=== PATIENT | male | born 1955 | race Caucasian/White ===

== ENCOUNTER → 2017-10-15 | Outpatient (CLI) | payer BC ==
[~2017-10-15] MED LIST: ACET325T14 PO; AMLO10TA6 PO; ASPI-496 PO; CARV-39 PO; Cyclobenzaprine Hcl PO; DAPT500V6 IV; DIAZ5TAB4 PO; DOXA4TAB3 PO; DOXY100T9 PO; ESCI20TA PO; GABA300C10 PO; HYDR-3307 PO; HYDR-882 PO; Hydrocodone Bit/Acetaminophen PO; Hydrocortisone TP; JOINT SUPPLEMENT PO; METH4TAB6 PO; METH500T97 PO; MULT-6 PO; ONDA4TAB7 PO; POLY17PO5 PO; POTA20TA6 PO; POTASSIUM CLORIDE PO; PRED10TA PO; REGADENOSON 0.4 MG/5 ML SYRINGE ONE; SENN1TAB8 PO; TRAM50TA2 PO; VALS1TAB28 PO
== END | disposition home or self-care (01) ==
LOC: CFH 07:53
PROVIDERS: ATTEND Physician Assistant
DX: I51.7 Cardiomegaly (principal)
CPT/HCPCS: 78452; 93017; 93306; A9502; J2785

== ENCOUNTER → 2018-03-24 | Outpatient (CLI) | payer BC ==
[~2018-03-24] MED LIST changes: -AMLO10TA6 PO; +AMLO10TA8 PO; +GLUC-149 PO; +HYDR-3653 PO; -HYDR-882 PO; +POTA20PA25 PO; -REGADENOSON 0.4 MG/5 ML SYRINGE ONE
[2018-03-24 11:57] LABS: MICROSCOPIC NOT IND
[2018-03-24 11:59] LABS: BASOPHILS # (AUTO) 0.01 x10^3/uL (0-0.1); BASOPHILS % (AUTO) 0 % (0-1); EOSINOPHILS # (AUTO) 0.27 x10^3/uL (0-0.4); EOSINOPHILS % (AUTO) 5 % (1-7); LYMPHOCYTES # (AUTO) 1.59 x10^3/uL (1-3.4); LYMPHOCYTES % (AUTO) 27 % (22-44); MD NO; MEAN CORPUSCULAR HEMOGLOBIN 30.5 pg (27.5-34.5); MEAN CORPUSCULAR HGB CONC 34.1 g/dL (33.2-36.2); MEAN CORPUSCULAR VOLUME 89.4 fL (81-97); MEAN PLATELET VOLUME 7.8 fL (7.4-10.4); MONOCYTES # (AUTO) 0.44 x10^3/uL (0.2-0.8); MONOCYTES % (AUTO) 7 % (2-9); NEUTROPHILS # (AUTO) 3.58 x10^3/uL (1.8-6.8); NEUTROPHILS % (AUTO) 61 % (42-75); PLATELET COUNT 181 x10^3/uL (130-400); RED BLOOD COUNT 5.09 x10^6/uL (4.38-5.82); RED CELL DISTRIBUTION WIDTH 12.6 % (9.4-14.8)
[2018-03-24 12:04] LABS: ALANINE AMINOTRANSFERASE 28 U/L (12-78); ALBUMIN 3.9 g/dL (3.4-5.0); ANION GAP 6 mmol/L (5-15); CALCIUM 8.9 mg/dL (8.5-10.1); CHLORIDE 107 mmol/L (98-107); CREATININE 0.93 mg/dL (0.7-1.3)
[2018-03-24 12:04] LABS: CULTURE INDICATED? NO
[2018-03-24 12:06] LABS: ALKALINE PHOSPHATASE 56 U/L (45-117); BILIRUBIN,TOTAL 0.7 mg/dL (0.2-1.0); TOTAL PROTEIN 7.2 g/dL (6.4-8.2)
== END | disposition home or self-care (01) ==
LOC: STAR 10:56
PROVIDERS: ATTEND Orthopaedic Surgery
DX: Z01.818 Encounter for other preprocedural examination (principal); M17.11 Unilateral primary osteoarthritis, right knee; M17.12 Unilateral primary osteoarthritis, left knee; S46.919A Strain of unspecified muscle, fascia and tendon at shoulder and upper arm level, unspecified arm, initial encounter; X58.XXXA Exposure to other specified factors, initial encounter; Y93.89 Activity, other specified; Y92.89 Other specified places as the place of occurrence of the external cause; Y99.8 Other external cause status
CPT/HCPCS: 36415; 80053; 81003; 85025; 87081; 87147; 93005

== ENCOUNTER 2018-04-04 07:53 | Inpatient (IN) | payer BC ==
[~2018-04-04] VITALS: Ht 177.8 cm; Wt 112.9 kg
[~2018-04-04 07:53] MED LIST changes: +EPINEPHRINE 1 MG/ML, 1ML ONE; +KETOROLAC 60 MG/2 ML ONE; +ROPIvacaine/PF 0.2%, 20 ML ONE; +SODIUM CHLORIDE 0.9% 50 ML ONE; +TRANEXAMIC ACID 100 MG/ML, 10ML ONE
[2018-04-04] MEDS ORDERED: VANCOMYCIN PER PHARMACY MC STA (08:38)
[2018-04-04] MEDS ORDERED: LACTATED RINGERS 1,000 ML IV SCH (08:41)
[2018-04-04] MEDS ORDERED: ONDANSETRON ODT 8 MG PO STA (08:42)
[2018-04-04] MEDS ORDERED: GABAPENTIN 300 MG CAPSULE PO STA (08:42)
[2018-04-04] MEDS ORDERED: OxyconTIN ER 10 MG TAB.ER PO STA (08:42)
[2018-04-04] MEDS ORDERED: ACETAMINOPHEN 500 MG TABLET PO STA (08:42)
[2018-04-04] MEDS ORDERED: MUPI22OI2 NAS (08:45)
[2018-04-04] MEDS ORDERED: VANCOMYCIN 2,000 MG in SODIUM CHLORIDE 0.9% 500 ML IV SCH (09:00)
[2018-04-04] MEDS ORDERED: FENTANYL PF 250 MCG/5ML ONE (09:37)
[2018-04-04] MEDS ORDERED: MIDAZOLAM 1 MG/ML, 2ML ONE (09:37)
[2018-04-04] MEDS ORDERED: VANCOMYCIN 1,000 MG ONE (11:17)
[2018-04-04] MEDS ORDERED: LIDOCAINE-MPF 2% ,5ML ONE (11:24)
[2018-04-04] MEDS ORDERED: BUPIVACAINE/PF 0.25% ONE (11:24)
[2018-04-04] MEDS ORDERED: PROPOFOL 10 MG/ML, 20ML ONE (11:25)
[2018-04-04] MEDS ORDERED: CEFAZOLIN 1,000 MG ONE (11:25)
[2018-04-04] MEDS ORDERED: PROMETHAZINE 25 MG/ML, 1ML IV PRN (11:30)
[2018-04-04] MEDS ORDERED: MIDAZOLAM 1 MG/ML, 2ML IV PRN (11:30)
[2018-04-04] MEDS ORDERED: OXYcodone 5 MG/5 ML ORAL.SOL UDC PO PRN (11:30)
[2018-04-04] MEDS ORDERED: ONDANSETRON 2MG/ML, 2ML IV PRN ×2 (11:30→12:30)
[2018-04-04] MEDS ORDERED: METOPROLOL 1 MG/ML, 5ML IV PRN (11:30)
[2018-04-04] MEDS ORDERED: HYDROmorphone 2 MG/ML, 1ML IVPush PRN (11:30)
[2018-04-04] MEDS ORDERED: hydrALAzine 20 MG/ML, 1ML IV PRN (11:30)
[2018-04-04] MEDS ORDERED: MEPERIDINE/PF 25MG/0.5ML IVPush PRN (11:30)
[2018-04-04] MEDS ORDERED: ALBUTEROL/IPRATROPIUM 2.5MG/0.5MG, 3 ML NPPB PRN (11:30)
[2018-04-04] MEDS: SODIUM CHLORIDE 0.9% 1,000 ML IV SCH ×2 (12:04→19:30)
[2018-04-04] MEDS ORDERED: HYDROmorphone 1 MG/ML, 1ML ONE (12:15)
[2018-04-04] MEDS ORDERED: FENTANYL PF 100 MCG/2ML ONE (12:15)
[2018-04-04] MEDS ORDERED: OXYcodone 5 MG/5 ML ORAL.SOL UDC ONE (12:16)
[2018-04-04] MEDS: FENTANYL PF 100 MCG/2ML IV PRN ×2 (12:20→12:50)
[2018-04-04] MEDS ORDERED: HYDROmorphone 1 MG/ML, 1ML IV PRN (12:30)
[2018-04-04] MEDS ORDERED: SENNA/DOCUSATE TABLET PO PRN (12:30)
[2018-04-04] MEDS ORDERED: ONDANSETRON 4 MG TABLET PO PRN (12:30)
[2018-04-04] MEDS ORDERED: TRANEXAMIC ACID 1,000 MG in SODIUM CHLORIDE 0.9% 100 ML IVPB ONE (12:30)
[2018-04-04] MEDS ORDERED: PROMETHAZINE 12.5 MG SUPP PR PRN (12:30)
[2018-04-04] MEDS ORDERED: DIAZEPAM 5 MG TABLET PO PRN (12:30)
[2018-04-04] MEDS ORDERED: BISACODYL 10 MG SUPP PR PRN (12:30)
[2018-04-04] MEDS ORDERED: DIPHENHYDRAMINE 25 MG CAPSULE PO PRN (12:30)
[2018-04-04] MEDS ORDERED: HYDROcodone/APAP 10/325 MG TABLET PO PRN (12:30)
[2018-04-04] MEDS ORDERED: ALUMINUM/MAG/SIMETHICONE 30 ML UDC PO PRN (12:30)
[2018-04-04] MEDS ORDERED: ZOLPIDEM 5MG TABLET PO PRN (12:30)
[2018-04-04] MEDS ORDERED: MAGNESIUM HYDROXIDE 8%, 30ML UDC PO PRN (12:30)
[2018-04-04] MEDS ORDERED: PROMETHAZINE 25 MG/ML, 1ML IM PRN (12:30)
[2018-04-04 13:50] VITALS: BP 125/64
[2018-04-04] MEDS: KETOROLAC 30 MG/1 ML IV SCH ×2 (14:21→20:27)
[2018-04-04] MEDS: ACETAMINOPHEN 650 MG/20.3 ML UDC PO SCH ×2 (14:21→20:26)
[2018-04-04] MEDS: CEFAZOLIN PMX 2GM/50ML 50 ML IVPB SCH (18:25)
[2018-04-04] MEDS: ASPIRIN 81 MG TABLET EC PO SCH (18:25)
[2018-04-04] MEDS: POTASSIUM CHLORIDE 20 MEQ TAB.ER.PRT PO SCH ×2 (18:25→20:28)
[2018-04-04 19:45] VITALS: BP 130/72
[2018-04-04] MEDS: DOCUSATE 100 MG CAPSULE PO SCH (20:26)
[2018-04-04] MEDS: CARVEDILOL 25 MG TABLET PO SCH (20:27)
[2018-04-05 00:15] VITALS: BP 114/68
[2018-04-05] MEDS: SODIUM CHLORIDE 0.9% 1,000 ML IV SCH ×2 (02:10→08:15)
[2018-04-05] MEDS: ACETAMINOPHEN 650 MG/20.3 ML UDC PO SCH ×2 (02:35→08:40)
[2018-04-05] MEDS: KETOROLAC 30 MG/1 ML IV SCH ×2 (02:35→08:40)
[2018-04-05] MEDS: CEFAZOLIN PMX 2GM/50ML 50 ML IVPB SCH (02:35)
[2018-04-05 04:23] VITALS: BP 130/74
[2018-04-05] MEDS ORDERED: DEXAMETHASONE 4 MG/ML, 5ML ONE (05:32)
[2018-04-05] MEDS: ASPIRIN 81 MG TABLET EC PO SCH (05:46)
[2018-04-05] MEDS ORDERED: DEXAMETHASONE 4 MG/ML, 1ML IVPush SCH (06:00)
[2018-04-05 06:42] VITALS: BP 128/65
[2018-04-05] MEDS: POTASSIUM CHLORIDE 20 MEQ TAB.ER.PRT PO SCH (08:40)
[2018-04-05] MEDS: DOCUSATE 100 MG CAPSULE PO SCH (08:40)
[2018-04-05] MEDS: CARVEDILOL 25 MG TABLET PO SCH (08:41)
[2018-04-05] MEDS ORDERED: MULTIVITAMINS/MINERALS TABLET PO SCH (09:00)
[2018-04-05] MEDS ORDERED: AMLODIPINE 10 MG TAB PO SCH (09:00)
[2018-04-05] MEDS ORDERED: HYDROCHLOROTHIAZIDE 12.5 MG CAPSULE PO SCH (09:00)
[2018-04-05] MEDS ORDERED: VALSARTAN 320 MG TABLET PO SCH (09:00)
[2018-04-05] MEDS ORDERED: DOXAZOSIN 2MG TABLET PO SCH (09:00)
[2018-04-05] MEDS ORDERED: OXYC5TAB3 PO (10:53)
[2018-04-05 11:35] VITALS: BP 135/82
== END 2018-04-05 12:12 | disposition home or self-care (01) | DRG 470 ==
LOC: OUT 07:53 → ORIP 12:04 → 4NOR 13:27 → DCLOUNGE 04-05 12:00
PROVIDERS: ADMIT Orthopaedic Surgery; ATTEND Orthopaedic Surgery
PROC: 3E0T3BZ Introduction of Anesthetic Agent into Peripheral Nerves and Plexi, Percutaneous Approach (ICD-10-PCS; 2018-04-04)
PROC: 0SRD069 Replacement of Left Knee Joint with Oxidized Zirconium on Polyethylene Synthetic Substitute, Cemented, Open Approach (ICD-10-PCS; principal; 2018-04-04 11:00)
DX: M17.12 Unilateral primary osteoarthritis, left knee (principal); I10 Essential (primary) hypertension; Z79.82 Long term (current) use of aspirin
CPT/HCPCS: 36415; 85014; 85018; C1713; G0378; J0171; J0690; J1100; J1885; J2250; J2704; J2795; J3010; J3370; J3490; Q0162; C1776; J7040; J7120